=== PATIENT | female | born 1995 | race Caucasian/White ===

== ENCOUNTER 2017-07-09 15:47 | Inpatient (IN) | payer OTHER ==
[2017-07-09 16:21] VITALS: BMI 35.0
[2017-07-09] MEDS ORDERED: HYDROcodone/Acetaminophen 5/325 mg Tablet PO PRN ×2 (16:49)
[2017-07-09] MEDS ORDERED: Lidocaine 1% (PF) 30 ML VIAL SC PRN (16:49)
[2017-07-09] MEDS ORDERED: Ibuprofen 800 MG TAB PO PRN (16:49)
[2017-07-09] MEDS ORDERED: Ondansetron HCl/PF 4 MG/2 ML Vial IVP PRN ×3 (16:49→23:36)
[2017-07-09] MEDS ORDERED: Fentanyl 4 mcg/Marc 0.1% Cadd 100 ML ONE (16:55)
[2017-07-09] MEDS ORDERED: Penicillin G Potassium 5 MILL.UNITS VIAL ONE (16:55)
[2017-07-09] MEDS ORDERED: Lactated Ringer's 1,000 ML IV SCH (17:00)
[2017-07-09] MEDS ORDERED: LR 500 ML/Oxytocin 10 units 500 ML IV SCH (17:00)
[2017-07-09] MEDS ORDERED: Penicillin G Potassium 5 MILL.UNITS in Sodium Chloride 0.9% 100 ML IVPB SCH (17:00)
[2017-07-09] MEDS ORDERED: Dextrose 5%-Lactated Ringers 1,000 ML IV SCH (17:00)
[2017-07-09 17:19] LABS: Hematocrit 35.7 % (36.0-47.0); Red Blood Cell (RBC) Count 3.89 mill/uL (4.20-5.40); White Blood Cell (WBC) Count 12.4 thou/uL (4.8-10.8)
[2017-07-09] MEDS ORDERED: diphenhydrAMINE 50 MG/ML VIAL IVP PRN (18:03)
[2017-07-09] MEDS ORDERED: Lactated Ringer's 500 ML IV PRN (18:03)
[2017-07-09] MEDS ORDERED: Promethazine HCl 25 MG/ML VIAL IM PRN (18:03)
[2017-07-09] MEDS ORDERED: Eucerin (Mineral Oil/Petrolatum,White) 30 gm Jar TOP PRN (18:03)
[2017-07-09] MEDS ORDERED: ePHEDrine/0.9% NaCl/PF SYRINGE 50 mg/10 ml SLOW IVP PRN (18:03)
[2017-07-09] MEDS ORDERED: Acetaminophen 325 MG TAB PO PRN (18:03)
[2017-07-09] MEDS ORDERED: Naloxone HCl 0.4 mg/ml Vial IVP PRN ×2 (18:03)
[2017-07-09] MEDS ORDERED: Communication Order-Pharmacy FS SCH (18:15)
[2017-07-09] MEDS ORDERED: Fentanyl 4mcg/Marcaine 0.1% Cassette 100 ML EPIDURAL SCH (18:15)
--- NOTE | 2017-07-09 18:35 | PDOC.LDHP ---
Labor and Delivery H&P Chief complaint: contractions, loss of fluid HPI: Pt presents to L and D w SROM. Current gestational age (weeks): 38 Due date: 07/21/17 Dating criteria: last menstrual period Grav: 2 Para: 1 Current complications: none Abnormal US findings: No Current medications: pre- vitamins Previous surgical history: none Allergies/Adverse Reactions: Allergies Allergy/AdvReac Type Severity Reaction Status Date / Time diphenhydramine Allergy Verified 07/09/17 16:18 [From Benadryl] Sulfa (Sulfonamide Allergy Verified 07/09/17 16:18 Antibiotics) Social history: none - Physical Exam Vital signs reviewed and normal: yes General: breathing through contractions Lungs: nonlabored breathing Abdomen: NTTP Extremeties: no edema FHT: category 1 - Vaginal Exam cm dilated: 5 Effacement: 90% Station: -1 - OB Labs Blood type: O RH: positive Antibody Screen: negative HIV: negative RPR: negative HEPSAg: negative 1 hour GCT: negative GBS: positive Rubella: immune - Assessment L&D Assessment: term rupture in membranes - Plan Plan: admit to L&D, GBS antibiotic prophylaxis, informed consent obtained, anesthesia consult for pain management
[2017-07-09 18:46] LABS: Amnisure Test RUPTURE DETECTED (No Rupture)
[2017-07-09] MEDS: Penicillin G 2.5 MILL.units 2.5 MILL.UNITS in Premix Bag 1 BAG IVPB SCH ×2 (19:42→21:12)
[2017-07-09] MEDS: LR / Pitocin 40 units/1000 ml 1,000 ML IV PRN ×2 (20:40→22:54)
--- NOTE | 2017-07-09 20:47 | PDOC.OPDEL ---
OB Operative/Delivery Note Delivery Dr/Surgeon: Cuco Pre-Delivery Diagnosis: active labor Procedure/Post Delivery Dx: spontaneous vaginal delivery Weeks gestation: 38 - Findings A Sex: male Weight: 6 lb 13 oz - 1 min: 9 - 5 min: 9 - Additional Findings/Plan Placenta delivered: spontaneous Repaired Obstetrical Laceration: 1st degree Estimated blood loss: 400ml Post delivery plan: routine recovery
[2017-07-09] MEDS ORDERED: Lanolin Ointment 7 GM TUBE TOP PRN (23:36)
[2017-07-09] MEDS ORDERED: Milk Of Magnesia 30 ML UDCUP PO PRN (23:36)
[2017-07-09] MEDS ORDERED: Benzocaine/Menthol 20-0.5% 60 ML CAN TOP PRN (23:36)
[2017-07-09] MEDS ORDERED: Bisacodyl 10 MG SUPP PR PRN (23:36)
[2017-07-09] MEDS ORDERED: LR / Pitocin 40 units/1000 ml 1,000 ML IV SCH (23:36)
[2017-07-09] MEDS ORDERED: Preparation H Ointment 28 GM TUBE PR PRN (23:36)
[2017-07-09] MEDS ORDERED: Acetaminophen/Codeine 30-300mg Tablet PO PRN (23:36)
[2017-07-09] MEDS ORDERED: Docusate Calcium (SURFAK) 240 MG CAP PO SCH (23:45)
[2017-07-09] MEDS ORDERED: Ibuprofen 800 MG TAB PO SCH (23:45)
[2017-07-09] MEDS ORDERED: Adacel (T-DAP) 0.5 ML VIAL IM ONE (23:59)
[2017-07-10] MEDS: Ibuprofen 800 MG TAB PO SCH ×3 (06:16→21:40)
[2017-07-10] MEDS: Docusate Calcium (SURFAK) 240 MG CAP PO SCH ×2 (08:17→21:40)
[2017-07-10] MEDS: Prenatal Vitamin 1 TAB PO SCH (08:17)
[2017-07-10] MEDS: Acetaminophen/Codeine 30-300mg Tablet PO PRN ×2 (08:18→20:52)
[2017-07-10] MEDS: Ferrous Sulfate 325 MG TAB PO SCH ×2 (08:20→16:42)
--- NOTE | 2017-07-10 09:14 | PDOC.PP ---
Post Progress Note Post Day #: 1 Subjective: no concerns, nursing well, normal lochia PO intake tolerated: yes Flatus: yes Ambulation: yes Vital Signs (12 hours) Temp Pulse Resp BP 07/10/17 08:00 97.9 F 79 18 120/56 L 07/10/17 04:00 98.3 F 71 16 116/63 07/10/17 00:15 98.2 F 75 16 121/56 L 07/09/17 23:15 98.3 F 87 16 124/58 L Weight Weight 198 lb - Physical Examination General: NAD Respiratory: non-labored breathing Abdominal: no distention Fundus firm & at: below umb Extremities: negative homans (B) Skin: no rash Neurological: no gross focal deficits Psychiatric: A&Ox3, normal affect Result Diagrams: 07/09/17 17:05 Additional Labs: Post Labs Hep Bs Antigen Non-Reactive S/CO (NonReactive) 07/09/17 17:05 (1) 38 weeks gestation of Code(s): Z3A.38 - 38 WEEKS GESTATION OF Status: Acute (2) Spontaneous rupture of membranes Code(s): [id number] - Status: Acute (3) Vaginal delivery Code(s): O80 - ENCOUNTER FOR FULL-TERM UNCOMPLICATED DELIVERY Status: Acute - Assessment/Plan PPD1 doing well, baby to stay for GBS+, likely DC tomorrow.
[2017-07-11] MEDS: Ibuprofen 800 MG TAB PO SCH ×2 (06:17→14:24)
[2017-07-11 08:05] VITALS: BP 107/55; TEMP 97.9
--- NOTE | 2017-07-11 08:12 | PDOC.PP ---
Post Progress Note Post Day #: 2 Subjective: no concerns, min lochia, ready for DC PO intake tolerated: yes Flatus: yes Ambulation: yes Vital Signs (12 hours) Temp Pulse Resp BP 07/11/17 07:58 97.9 F 66 20 107/55 L 07/11/17 07:57 97.9 F 63 20 107/55 L Weight Weight 198 lb - Physical Examination Respiratory: non-labored breathing Fundus firm & at: below umb Skin: no rash Psychiatric: A&Ox3, normal affect Result Diagrams: 07/09/17 17:05 Additional Labs: Post Labs Hep Bs Antigen Non-Reactive S/CO (NonReactive) 07/09/17 17:05 (1) 38 weeks gestation of Code(s): Z3A.38 - 38 WEEKS GESTATION OF Status: Acute (2) Spontaneous rupture of membranes Code(s): NZQ7984 - Status: Acute (3) Vaginal delivery Code(s): O80 - ENCOUNTER FOR FULL-TERM UNCOMPLICATED DELIVERY Status: Acute - Assessment/Plan PPD2 doing well, no concerns, plan for DC today
[2017-07-11] MEDS: Prenatal Vitamin 1 TAB PO SCH (09:25)
[2017-07-11] MEDS: Ferrous Sulfate 325 MG TAB PO SCH (09:26)
[2017-07-11] MEDS: Docusate Calcium (SURFAK) 240 MG CAP PO SCH (09:26)
== END 2017-07-11 16:20 | disposition home or self-care (01) | DRG 775 ==
LOC: L&D/OP 15:47 → L&D 17:19 → 3SW 23:05
PROVIDERS: ADMIT Obstetrics & Gynecology; ATTEND Obstetrics & Gynecology
PROC: 10E0XZZ Delivery of Products of Conception, External Approach (ICD-10-PCS; principal; 2017-07-09)
PROC: 0HQ9XZZ Repair Perineum Skin, External Approach (ICD-10-PCS; 2017-07-09)
DX: O70.0 First degree perineal laceration during delivery (principal); O99.824 Streptococcus B carrier state complicating childbirth; Z3A.38 38 weeks gestation of pregnancy; Z37.0 Single live birth; Z88.2 Allergy status to sulfonamides; Z88.8 Allergy status to other drugs, medicaments and biological substances
CPT/HCPCS: 36415; 84112; 85027; 86780; 87340; A4216; J0595; J2540; J7050